=== PATIENT | male | born 1940 | race Caucasian/White ===

== ENCOUNTER → 2020-06-17 10:03 | Outpatient (BNVA) | payer MEDICARE, OTHER, SELFPAY | PROVIDERS: Family Provider Family Medicine; PCP Internal Medicine; Visit Provider Internal Medicine Cardiovascular Disease | DX: I48.92 Unspecified atrial flutter (principal); I10 Essential (primary) hypertension; R53.83 Other fatigue; R00.1 Bradycardia, unspecified; I50.32 Chronic diastolic (congestive) heart failure; E78.2 Mixed hyperlipidemia | CPT/HCPCS: 80053; 84443; 85025 ==

== ENCOUNTER 2020-09-27 21:29 | Emergency (ER) | payer MEDICARE, OTHER, SELFPAY ==
[2020-09-27 21:42] VITALS: PULSE 96; RESP 18; TEMP 36.9; O2SAT 96; BMI 28.3
--- NOTE | 2020-09-27 21:54 | ED_ITS ---
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 He states that since he has had that he has not been able to urinate at all. He states he is having lower abdominal pain and pressure from not being able to urinate. He states he had a slight problem in the past. Denies any worsening improving factors. States pain is sharp in nature and rates it a 6 out of 10. Review of Systems Const: Denies: fever(s), chills, body aches or change in appetite Eyes: Denies: blurry vision or eye discomfort ENMT: Denies: throat pain or dental pain Card: Denies: chest pain Resp: Denies: dyspnea GI: Reports: abdominal pain : Reports: difficulty urinating Musc: Denies: neck pain or back pain Skin/Breast: Denies: rash Neuro: Denies: headache(s) Psych: Denies: depression Sai/Lymph: Denies: easy bruising All/Imm: Denies: urticaria PFSH ED PFSH: Medical History (Updated 09/27/20 @ 21:56 by Bebeto Harvey MD) Atrial fibrillation Atrial flutter Diabetes Diastolic heart failure HTN (hypertension) Hx of deep venous thrombosis Hyperlipidemia Physical Exam Const: COMMON NORMALS: no acute distress, patient oriented x3 and healthy appearing HENMT: COMMON NORMALS: normocephalic and atraumatic HEAD & SCALP: normoc ephalic and atraumatic Eye: COMMON NORMALS: Equal, round and reactive pupils present and EOMs intact bilaterally PUPIL: Yes Equal, round and reactive pupils present Neck/C-Spine: COMMON NORMALS: full ROM and supple Chest: COMMONS NORMALS: normal inspection of the chest and normal palpation of entire chest wall Resp: COMMON NORMALS: normal respiratory effort, No retractions, No use of accessory muscles and clear to auscultation bilaterally AUSCULTATION: clear to auscultation bilaterally Cardio: COMMON NORMALS: regular rate, regular rhythm and No murmurs present (Cardio) RATE: regular rate RHYTHM: regular rhythm GI: COMMON NORMALS: Normal to inspection, nondistended, normoactive bowel sounds present, Soft to palpation and no masses PALPATION: Yes Soft to palpation OTHER: Suprapubic tenderness Extremity: COMMON NORMALS: normal to inspection and full ROM Neuro: COMMON NORMALS: patient oriented x3, moves all extremities and no focal motor deficits Psych: COMMON NORMALS: mental status grossly normal, Normal thought process present and cooperative THOUGHT PROCESS: Normal thought process present Skin: COMMON NORMALS: no rashes or lesions noted and no wounds GENERAL SKIN EXAM: no rashes or lesions noted Course Vital Signs: Vital signs: Vital Signs Temperature 98.4 F 09/27/20 21:42 Pulse Rate 96 09/27/20 21:42 Respiratory Rate 18 09/27/20 21:42 Pulse Oximetry 96 09/27/20 21:42 MDM - Male MDM Narrative: Medical decision making narrative: Patient presents here with urinary retention. Patient had a Watkins placed with immediate relief. Will leave Watkins in place and have him follow-up with Dr. Frost. Will give patient a leg bag. He is stable for discharge. He is return if he has any problems. He understands agrees to plan. Discharge Plan Discharge Patient Disposition: Home Clinical Impression: Acute urinary retention Condition: Stable Prescriptions: No Action warfarin 3 mg tablet 3 mg PO DAILY RF: 0 lovastatin 40 mg tablet 40 mg PO DAILY RF: 0 furosemide 20 mg tablet 20 mg PO Q48H Qty: 45 RF: 2 amlodipine 5 mg tablet 5 mg PO DAILY RF: 0 potassium chloride 10 mEq capsule, extended release 10 meq PO Q48H RF: 0 tamsulosin 0.4 mg capsule 0.4 mg PO DAILY RF: 0 amiodarone 100 mg tablet 50 mg PO DAILY 90 Days Qty: 45 RF: 1 Discharge Orders: Discharge Order (Routine); Ordered 09/27/20 Ordered By: Bebeto Harvey Referrals: Briana Louis DO [Primary Care Provider] - Adryan Frost MD [Physician] - 1-3 days Discharge Diet: Advance as tolerated Discharge Activity: Resume usual activity Patient Instructions: Urinary Retention in Men (ED), Watkins Catheter Placement and Care (ED), Urinary Leg Bag (GEN) Coding Level of Care Code ED Cleaning Staff Supervisor for Chg Fwd Exam Comprehensive
[2020-09-27 22:03] VITALS: BP 162/80; PULSE 69; RESP 18; O2SAT 96
[2020-09-27 22:19] VITALS: BP 165/76; PULSE 62; RESP 18; O2SAT 96
--- NOTE | 2020-09-30 09:48 | DCPLANNER ---
environmental health and safety manager had message to schedule a follow up appointment for patient with Dr. Frost. environmental health and safety manager called the office of Dr. Frost, spoke with Marcy, gave clinic patients information. environmental health and safety manager was told that patients information would be printed and reviewed. Clinic will call patient with appointment information.
--- NOTE | 2020-10-01 07:58 | DCPLANNER ---
Patient has a follow up appointment scheduled for Wednesday, October 14, [address] at 4:[address] Frost. Clinic will call patient with appointment information.
--- NOTE | 2020-10-16 12:07 | DCPLANNER ---
Patient had a follow up appointment scheduled for 10.14.[address] Frost - patient did attend appointment.
== END 2020-09-27 22:21 | disposition home or self-care (01) ==
PROVIDERS: Emergency Provider Emergency Medicine; PCP Internal Medicine
DX: R33.9 Retention of urine, unspecified (principal); Z79.01 Long term (current) use of anticoagulants; I48.91 Unspecified atrial fibrillation; E11.9 Type 2 diabetes mellitus without complications; I11.0 Hypertensive heart disease with heart failure; I50.30 Unspecified diastolic (congestive) heart failure; E78.5 Hyperlipidemia, unspecified
CPT/HCPCS: 12345; 51702; 99282

== ENCOUNTER 2020-10-10 08:09 | Emergency (ER) | payer MEDICARE, OTHER, SELFPAY ==
[2020-10-10 08:16] VITALS: BP 147/66; PULSE 63; RESP 18; TEMP 36.4; O2SAT 98; BMI 25.8
--- NOTE | 2020-10-10 08:32 | W.ED.MALEGU ---
HPI - Male Genitourinary General: Chief complaint: Urogenital-Male Stated complaint: Catheter related issues Time Seen by Provider: 10/10/20 08:16 Source: patient and family (son) Mode of arrival: ambulatory Limitations: no limitations History of Present Illness: HPI Narrative: 80-year-old male patient presents to the emergency department with concern of hematuria. Catheter was placed on 09/27/2020 in the ED due to urinary retention. He reports noticed dark bloody discoloration of urine in his catheter bag. States had small amount of lower abdominal pain last night for about 4 hours, then spontaneously resolved. He states no other complaints, denies fever chills denies nausea vomiting, normal appetite and normal intake of fluid. He reports no pain around the penis. Denies blood around the Watkins catheter insertion site. Onset (ago): hour(s) (12) Duration: now resolved Location: abdomen (lower) Quality: aching Context: indwelling catheter Associated symptoms: Reports hematuria; Deny nausea or vomiting Review of Systems General: Reports: 10 or more systems reviewed and unremarkable except in HPI and below Const: Denies: fever(s), chills, body aches, fatigue, malaise or diaphoresis Eyes: Denies: blurry vision or eye redness ENMT: Denies: throat pain, oral sores, dental pain, disequilibrium, nasal discharge or nasal congestion Card: Denies: chest pain, palpitations, irregular heart rhythm or dyspnea on exertion Resp: Denies: dyspnea, productive cough, non-productive cough or wheezing GI: Reports: abdominal pain (lower pubic - now resolved); Denies: nausea, vomiting, heartburn, early satiety, constipation, bloating, GI cramping, pain on defecation or change in stool character : Reports: difficulty urinating (due to urinary incontinence, now resolved with insertion of catheter) and hematuria; Denies: urinary urgency, urinary hesitancy, urinary dribbling or oliguria Musc: Denies: neck pain, back pain, joint pain or joint warmth Skin/Breast: Denies: rash or pruritus Neuro: Denies: headache(s), weakness in extremities, difficulty walking, confusion or behavioral changes Psych: Denies: anxiety or depression Sai/Lymph: Denies: easy bruising [facility] ED PFSH: Medical History (Updated 10/10/20 @ 09:04 by BOLA Browning Atrial fibrillation Atrial flutter Diabetes Diastolic heart failure HTN (hypertension) Hx of deep venous thrombosis Hyperlipidemia Physical Exam Const: COMMON NORMALS: no acute distress, patient oriented x3, healthy appearing and alert GENERAL APPEARANCE: cooperative, comfortable and well hydrated HENMT: COMMON NORMALS: normocephalic, Normal external nose present and moist oral mucous membranes HEAD & SCALP: normocephalic NOSE: Normal external nose present Eye: COMMON NORMALS: Equal, round and reactive pupils present and EOMs intact bilaterally GENERAL EYE: appearance normal, both eyes and all related structures PUPIL: Yes Equal, round and reactive pupils present Neck/C-Spine: COMMON NORMALS: full ROM and no lymphadenopathy GENERAL: Yes normal visual inspection and Yes trachea midline CERVICAL SPINE: Yes cervical ROM normal Lymph: LYMPHATIC: no lymphadenopathy noted Chest: COMMONS NORMALS: normal inspection of the chest Resp: COMMON NORMALS: normal respiratory effort and clear to auscultation bilaterally AUSCULTATION: clear to auscultation bilaterally Cardio: COMMON NORMALS: regular rhythm, S1 normal heart sound present and S2 normal heart sound present RHYTHM: regular rhythm HEART SOUNDS: S1 normal heart sound present and S2 normal heart sound present GI: COMMON NORMALS: Soft to palpation and non-tender INSPECTION: Yes normal to inspection PALPATION: Yes Soft to palpation : COMMON NORMALS: Yes no CVA tenderness and Yes normal external exam BLADDER/KIDNEY EXAM: Yes catheter in place, Yes bladder normal to palpation, Yes no CVA tenderness and No CVA tenderness MALE GROIN/PERINEUM EXAM: No inguinal lymphadenopathy and No Genital lesions present PENIS: uncircumcised, not edematous, not erythematous and No Genital lesions present MEATUS: meatus normal, no meatla discharge and No Blood at meatus present OTHER: dark urine, malodorous Back/Pelvis: COMMON NORMALS: no CVA tenderness and thoracic and lumbar spine normal to inspection GENERAL BACK: No CVA tenderness Extremity: COMMON NORMALS: normal to inspection and capillary refill normal Neuro: COMMON NORMALS: patient oriented x3 and no focal motor deficits SENSORIUM/ORIENTATION: Yes alert Psych: COMMON NORMALS: mental status grossly normal, Normal thought process present and cooperative ACTIVITY/MOTOR BEHAVIOR: Yes appropriate eye contact THOUGHT PROCESS: Normal thought process present Skin: COMMON NORMALS: no rashes or lesions noted and turgor normal GENERAL SKIN EXAM: no rashes or lesions noted and turgor normal Course Vital Signs: Vital signs: Vital Signs Temperature 97.6 F 10/10/20 08:16 Pulse Rate 59 L 10/10/20 08:37 Respiratory Rate 18 10/10/20 08:37 Blood Pressure 147/66 10/10/20 08:37 Pulse Oximetry 96 10/10/20 08:37 MDM - Male Lab Data: Labs: Lab Results 10/10/20 Range/Units 08:25 Urine Color Yellow (Yellow) Urine Appearance Cloudy (CLEAR) Urine pH 6 (5-7) Ur Specific Gravit y 1.010 (1.005-1.030) Urine Protein Neg (Negative) Urine Glucose (UA) Norm (Normal) Urine Ketones Negative (Negative) Urine Blood 3+ H (Negative) Urine Nitrate Negative (Negative) Urine Bilirubin Neg (Negative) Urine Urobilinogen Norm (Negative) mg/dL Ur Leukocyte Brooke ase 2+ H (Negative) Urine RBC 40-50 H (0-2) /hpf Urine WBC 10-15 H (0-5) /hpf Ur Squamous Epith Cells None (0-5) /hpf Amorphous Sediment Not Reportable Urine Bacteria 4+ H (NONE) /hpf Discharge Plan Discharge Patient Disposition: Home Clinical Impression: Watkins catheter present UTI (urinary tract infection) due to urinary indwelling Watkins catheter Qualifiers: Indwelling urinary catheter type: indwelling urethral catheter Encounter type: initial encounter Qualified Code(s): T83.511A - Infection and inflammatory reaction due to indwelling urethral catheter, initial encounter Condition: Stable Prescriptions: New cefdinir 300 mg capsule 300 mg PO BID 10 Days Qty: 20 RF: 0 No Action warfarin 3 mg tablet 3 mg PO DAILY RF: 0 lovastatin 40 mg tablet 40 mg PO DAILY RF: 0 furosemide 20 mg tablet 20 mg PO Q48H Qty: 45 RF: 2 amlodipine 5 mg tablet 5 mg PO DAILY RF: 0 potassium chloride 10 mEq capsule, extended release 10 meq PO Q48H RF: 0 tamsulosin 0.4 mg capsule 0.4 mg PO DAILY RF: 0 amiodarone 100 mg tablet 50 mg PO DAILY 90 Days Qty: 45 RF: 1 Discharge Orders: Discharge Order (Routine); Ordered 10/10/20 Ordered By: Barb Short Referrals: Heriberto,Briana M, DO [Primary Care Provider] - Discharge Diet: Usual diet Discharge Activity: Resume usual activity Patient Instructions: Watkins Catheter Care, Urinary Tract Infection in Women (ED), Urinary Leg Bag (GEN) Activity Restrictions/Additional Instructions: Return to the emergency department if you develop fever, chills, increased abdominal pain, flank pain or nausea vomiting Return to the emergency department if you develop fany blood in your urine bag or around the catheter site. Take antibiotics until all gone. Antimicrobial therapy and use of warfarin can cause interaction. You will need repeat INR (for warfarin) on Wednesday by Dr Louis. Continue with follow up with Dr Frost. Start Omnicef (antibiotic) today Coding Level of Care Code ED Field Hockey And Lacrosse Coach for Chg Fwd Exam Comprehensive
[2020-10-10 08:37] VITALS: BP 147/66; PULSE 59; RESP 18; O2SAT 96
[2020-10-10 08:53] LABS: Bilirubin Urine Neg (Negative); Blood Urine 3+ (Negative); Glucose Urine UA Norm (Normal); Ketones Urine Negative (Negative); Nitrate Urine Negative (Negative); Protein Urine Neg (Negative); Urine Appearance Cloudy (CLEAR); Urine Color Yellow (Yellow); Urobilinogen Urine Norm (Negative); pH Urine 6 (5-7)
[2020-10-10 08:54] LABS: Add Urine Microscopic? YES; Leukocyte Esterase Urine 2+ (Negative)
[2020-10-10 08:55] LABS: Add Urine Culture? Yes; Bacteria Urine 4+ /hpf; RBC Urine 40-50 /hpf (0-2)
[2020-10-10] MEDS: lidocaine 1% INJ 20 mL 3.6 ML IM (09:29)
[2020-10-10] MEDS: cefTRIAXone 1,000 mg SDV 1000 MG IM (09:29)
[2020-10-10 09:39] VITALS: BP 140/76; PULSE 56; RESP 18; TEMP 37.1; O2SAT 96
== END 2020-10-10 09:43 | disposition home or self-care (01) ==
PROVIDERS: Emergency Provider Nurse Practitioner Family; PCP Internal Medicine
DX: T83.511A Infection and inflammatory reaction due to indwelling urethral catheter, initial encounter (principal); Z79.01 Long term (current) use of anticoagulants; I48.91 Unspecified atrial fibrillation; E11.9 Type 2 diabetes mellitus without complications; I11.0 Hypertensive heart disease with heart failure; I50.30 Unspecified diastolic (congestive) heart failure; E78.5 Hyperlipidemia, unspecified
CPT/HCPCS: 12345; 81001; 87077; 87086; 87186; 96372; 99281; 99283; J0696

== ENCOUNTER → 2021-05-22 11:15 | Outpatient (BNVA) | payer MEDICARE, OTHER, SELFPAY | PROVIDERS: PCP Internal Medicine; Visit Provider Internal Medicine Cardiovascular Disease | DX: E11.9 Type 2 diabetes mellitus without complications (principal); R53.83 Other fatigue; I50.32 Chronic diastolic (congestive) heart failure | CPT/HCPCS: 80053; 84443; 85025 ==